=== PATIENT | male | born 1995 | race Caucasian/White ===

== ENCOUNTER 2021-03-12 14:05 | Emergency (ER) | payer OTHER ==
[2021-03-12] MEDS ORDERED: ACETAMINOPHEN 325 MG TABLET PO STA (14:23)
--- NOTE | 2021-03-12 14:25 | ED Physician Documentation ---
History of Present Illness - Stated complaint Stated Complaint: MALE - Chief complaint Chief Complaint: General - History obtained from History obtained from: Patient - Additonal information Additional information: For 26 hours now he has had right testicular pain and swelling. It was not so bad that he could not sleep through the night but states it took him longer than normal to fall asleep. It is not improved with elevation. It started after working out on a rowing machine. No history of testicular problems. Review of Systems Constitutional: reports: Reviewed and negative Eyes: reports: Reviewed and negative Ears: reports: Reviewed and negative Nose: reports: Reviewed and negative Throat: reports: Reviewed and negative Cardiac: reports: Reviewed and negative Respiratory: reports: Reviewed and negative PD PAST MEDICAL HISTORY - Allergies Allergies/Adverse Reactions: Allergies Allergy/AdvReac Type Severity Reaction Status Date / Time No Known Drug Allergies Allergy Verified 03/12/21 14:17 PD ED PE NORMAL - Vitals Vital signs reviewed: Yes - General General: Alert and oriented X 3, No acute distress - HEENT HEENT: PERRL, EOMI - Abdomen Abdomen: Soft, Non tender - Male Male : Other (Normal cremaster reflexes both sides. Normal lie. Testicle is not swollen or tender. The epididymis on the right is tender. No hernia mass.) - Neuro Neuro: Alert and oriented X 3, Normal speech Results - Vitals Vitals: Vital Signs - 24 hr 03/12/21 03/12/21 14:12 15:44 Temperature 36.9 C Heart Rate 79 80 Respiratory 15 16 Rate Blood Pressure 122/78 125/70 O2 Saturation 99 99 Oxygen O2 Source Room air - Labs Labs: Laboratory Tests 03/12/21 14:30 Urine Color YELLOW Urine Clarity N Urine pH 7.0 Ur Specific [place] 1.020 Urine Protein NEGATIVE Urine Glucose (UA) NEGATIVE Urine Ketones NEGATIVE Urine Occult Blood NEGATIVE Urine Nitrite NEGATIVE Urine Bilirubin NEGATIVE Urine Urobilinogen 0.2 (NORMAL) Ur Leukocyte Esterase NEGATIVE Ur Microscopic Review NOT INDICATED Urine Culture Comments NOT INDICATED - Rads (name of study) testicular sono Radiology: EMP read contemporaneously (Trace bilateral Hydroceles and left greater than right varicoceles) PD MEDICAL DECISION MAKING - ED course ED course: We discussed likely diagnosis of epididymitis, less likely given the current clinical circumstances would be torsion based on history and physical. Discussed that if it is epididymitis may be STD related. He has no concern for STD and declines testing. Presents with 26 hours of right scrotal pain. He is not appearing to be in extremis. Nothing in the history or physical to suggest torsion, ultrasound showing bilateral trace hydroceles and left greater than right varicoceles. This may or may not be the culprit cause of pain and the diagnoses were discussed with him. Discussed signs and symptoms that would necessitate urgent reevaluation. Departure - Departure Disposition: 01 Home, Self Care Clinical Impression: Right testicular pain Condition: Good Record reviewed to determine appropriate education?: Yes Instructions: ED Testicular Pain UKO, ED Varicocele Comments: Tylenol or ibuprofen as needed for pain, return for new or worsening symptoms. [place]
[2021-03-12 14:54] LABS: BILIRUBIN,URINE NEGATIVE (NEGATIVE); GLUCOSE, URINE (UA) NEGATIVE (NEGATIVE); KETONES,URINE (UA) NEGATIVE (NEGATIVE); LEUKOCYTE ESTERASE, URINE NEGATIVE (NEGATIVE); NITRITE,URINE NEGATIVE (NEGATIVE); OCCULT BLOOD,URINE NEGATIVE (NEGATIVE); PROTEIN,URINE NEGATIVE (NEGATIVE); UROBILINOGEN,URINE 0.2 (NORMAL) E.U./dL (NORMAL)
[2021-03-12 14:56] LABS: CLARITY,URINE N (CLEAR)
--- NOTE | 2021-03-12 15:31 | Ultrasound Report ---
PROCEDURE: Testicle w/Doppler INDICATIONS: R testicular pain/swelling TECHNIQUE: Real-time scanning was performed of the scrotum and testicles, with image documentation. Color and p ulse Doppler interrogation was performed of both testicles. COMPARISON: None. FINDINGS: Right: Testicle is normal in size at 5.0 x 2.2 x 2.4 cm, and homogenous in echotexture. Epididymis is normal in overall size and morphology. Trace hydrocele. Mildly prominent peritesticular vessels wh ich increase in flow with Valsalva. They measure up to 3 mm. Overlying scrotal skin is normal in thic kness. Left: Testicle is normal in size at 4.7 x 2.3 x 2.7 cm, and homogeneous in echotexture. Epididymis is normal in overall size and morphology. Trace hydrocele. Mildly prominent peritesticular vessels wh ich increase in flow with Valsalva. It measures up to 4 mm. Overlying scrotal skin is normal in thick ness. Doppler: Color and pulse Doppler demonstrate normal and symmetric arterial flow in both testicles. IMPRESSION: No evidence of suspicious mass or torsion. Trace bilateral hydroceles. Left greater than right varicoceles. Reviewed by: José Antonio Zamorano DO on 03/12/2021 2:30 PM CAN Approved by: José Antonio Zamorano DO on 03/12/2021 2:30 PM CAN Station ID: [id number]
[2021-03-12 15:44] VITALS: BP 125/70
== END 2021-03-12 15:49 | disposition home or self-care (01) ==
LOC: ED 14:05
DX: N50.811 Right testicular pain (principal); N43.3 Hydrocele, unspecified; I86.1 Scrotal varices
CPT/HCPCS: 76870; 81003; 93975; 99284; A9270; 81001; 87086

== ENCOUNTER → 2022-10-22 | Outpatient (CLI) | payer SELFPAY | END | disposition EMS.NT | LOC: EMS 10:57 | DX: R06.00 Dyspnea, unspecified (principal); R05.9 Cough, unspecified; R53.83 Other fatigue; R50.9 Fever, unspecified ==

== ENCOUNTER 2023-02-12 16:01 | Outpatient (CLI) | payer OTHER | END 2023-02-12 16:02 | disposition critical access hospital (66) | LOC: EMS 16:01 | DX: S61.210A Laceration without foreign body of right index finger without damage to nail, initial encounter (principal); W29.3XXA Contact with powered garden and outdoor hand tools and machinery, initial encounter; Y93.H2 Activity, gardening and landscaping | CPT/HCPCS: A0425; A0429 ==

== ENCOUNTER 2023-02-12 16:24 | Emergency (ER) | payer OTHER ==
[2023-02-12] MEDS ORDERED: LIDOCAINE-MPF 2% 5 ML VIAL SUBQ STA (16:36)
--- NOTE | 2023-02-12 16:37 | ED Physician Documentation ---
PD HPI UPPER EXT INJURY - Stated complaint Stated Complaint: FINGER LAC - Chief complaint Chief Complaint: Laceration - History obtained from History obtained from: Patient - History of Present Illness Location: Right, Finger (index) Improved by: Rest Worsened by: Moving Contributing factors: No: Anticoagulated - Additonal information Additional information: 27-year-old male presents to the emergency department stating that he cut his right index finger with a tool while gardening today. Bandaged with EMS and brought to the emergency department. Patient has full range of motion of the finger. No numbness or tingling. He states his tetanus shot is up-to-date. PD PAST MEDICAL HISTORY - Past Medical History Past Medical History: No - Past Surgical History Past Surgical History: No - Present Medications Home Medications: Ambulatory Orders Medication Instructions Recorded Confirmed cephALEXin [Keflex] 500 mg PO Q6H #28 cap 02/12/23 - Allergies Allergies/Adverse Reactions: Allergies Allergy/AdvReac Type Severity Reaction Status Date / Time No Known Drug Allergies Allergy Verified 02/12/23 16:34 - Social History Does the pt smoke?: No Smoking Status: Never smoker - Immunizations Immunizations are current?: Yes Immunizations: TDAP current <10years - POLST Patient has POLST: No PD ED PE NORMAL - Vitals Vital signs reviewed: Yes - General General: Alert and oriented X 3, No acute distress - Derm Derm: Warm and dry - Extremities Extremities: Other (R index finger 3cm, irregular laceration palmar aspect, prox phalanx. NVI. tendon intact. ) - Neuro Neuro: Alert and oriented X 3 Results - Vitals Vitals: Vital Signs - 24 hr 02/12/23 02/12/23 16:31 17:15 Temperature 37.1 C Heart Rate 86 69 Respiratory 16 16 Rate Blood Pressure 126/79 110/67 O2 Saturation 98 98 Oxygen O2 Source Room air Procedures - Laceration (location) R index finger Length in cm: 3 Wound type: Curved, Irregular, Into subcut fat, Clean Neurovascular status: Sensory intact, Motor intact, Vascular intact Tendon involvement: Tendon intact Anesthesia: Lidocaine 2% Wound preparation: Irrigated copiously NS, Wound explored, To the base Skin layer closure: Nylon, Interrupted, Size #-0 - enter number (4) Other: Patient tolerated well, No complications, Neurovascular intact, Dressing applied, Tetanus UTD PD Medical Decision Making - ED course Complexity details: considered differential, d/w patient ED course: Laceration repaired. Tolerated well. No complications. Neurovascular intact. Apparently the injury was from a counter pocket trimmer, therefore we will place on antibiotics for home. Warnings of infection and instructions on wound care given at bedside. Also counseled on how to minimize scarring. Patient counseled regarding signs and symptoms for which I believe and urgent re-evaluation would be necessary. Patient with good understanding of and agreement to plan and is comfortable going home at this time This document was made in part using voice recognition software. While efforts are made to proofread this document, sound alike and grammatical errors may occur. Departure - Departure Disposition: Home, Self Care Clinical Impression: Finger laceration Qualifiers: Encounter type: initial encounter Finger: unspecified finger Damage to nail status: unspecified Foreign body presence: unspecified Laterality: right Qualified Code(s): S61.219A - Laceration without foreign body of unspecified finger without damage to nail, initial encounter Condition: Good Instructions: ED Laceration Hand Follow-Up: [facility] [place] [Provider Group] Prescriptions: cephALEXin [Keflex] 500 mg PO Q6H #28 cap Comments: Please follow up with your doctor, here or the walk in clinic for suture removal in 10-14 days. Return if you notice redness, swelling or drainage from the wound. You should change the dressing daily. You can use the splint as needed to help protect the area. Please take all antibiotics until gone. Your prescription was sent to [facility] in [place]. Discharge Date/Time: 02/12/23 17:40
[2023-02-12 17:16] VITALS: BP 110/67
== END 2023-02-12 17:40 | disposition home or self-care (01) ==
LOC: EDUNIT# → ED 16:24
DX: S61.210A Laceration without foreign body of right index finger without damage to nail, initial encounter (principal); W29.3XXA Contact with powered garden and outdoor hand tools and machinery, initial encounter; Y93.H2 Activity, gardening and landscaping
CPT/HCPCS: 12002; 99283